=== PATIENT | male | born 2000 | race Hispanic/Latino ===

== ENCOUNTER 2024-08-31 13:54 | Emergency (ER) | payer OTHER ==
[~2024-08-31] VITALS: Ht 167.6 cm; Wt 69.6 kg
[2024-08-31 17:40] LABS: PLATELET COUNT, AUTOMATED 243 10^3/uL (150-450)
[2024-08-31 17:51] LABS: AMPHETAMINES LEVEL URINE NEGATIVE (NEGATIVE); BARBITURATES URINE NEGATIVE (NEGATIVE)
[2024-08-31 17:52] LABS: BENZODIAZEPINES URINE NEGATIVE (NEGATIVE); CANNABINOIDS URINE NEGATIVE (NEGATIVE); COCAINE METABOLITE URINE NEGATIVE (NEGATIVE); METHADONE URINE NEGATIVE (NEGATIVE); OPIATES URINE NEGATIVE (NEGATIVE); PHENCYCLIDINE URINE NEGATIVE (NEGATIVE)
[2024-08-31 17:53] LABS: ETHYL ALCOHOL (ETHANOL) < 0.003 % (0.000-0.010)
[2024-08-31 17:55] LABS: ALT/SGPT 28 U/L (7.0-40); AST/SGOT 30 U/L (<34); CALCIUM LEVEL 9.4 MG/DL (8.5-10.1); CARBON DIOXIDE LEVEL 28 MMOL/L (20-31); CHLORIDE LEVEL 103 MMOL/L (98-107); CREATININE FOR GFR 0.99 MG/DL (0.70-1.30); GLOMERULAR FILTRATION RATE > 90.0 (>60); POTASSIUM SERUM 3.8 MMOL/L (3.5-5.1); SALICYLATE LEVEL < 3.0 MG/DL (<30); SODIUM LEVEL 144 MMOL/L (136-145)
[2024-08-31 21:25] VITALS: BP 138/78; TEMP 97.7; O2SAT 100
== END 2024-08-31 21:26 | disposition home or self-care (01) ==
LOC: M ED 13:54
DX: F43.21 Adjustment disorder with depressed mood (principal); F10.10 Alcohol abuse, uncomplicated